=== PATIENT | male | born 1945 ===

== ENCOUNTER 2018-08-18 07:41 | Day surgery (SDC) | payer MEDICARE, OTHER ==
[2018-03-01 11:09] VITALS: BMI 36.6
[2018-08-18 08:16] VITALS: O2SAT 100
[2018-08-18 08:43] LABS: CALCIUM 8.9 mg/dl (8.6-10.4)
--- NOTE | 2018-08-18 09:13 | CP.SDSHP ---
Same Day Surgery H & P - History Proposed Procedure: colonosocpy Pre-Op Diagnosis: screen - Previous Medical/Surgical History Cardiac: Hypertension Endocrine/Metabolic: Diabetes Comments: CRF - Allergies Allergies: Allergies No Known Allergies Allergy (Verified 02/15/18 10:59) - Physical Exam Vital Signs: Vital Signs 08/18/18 08:08 Temperature 98.1 F Pulse Rate 97 H Respiratory 18 Rate Blood Pressure 198/85 H O2 Sat by Pulse 100 Oximetry Mental Status: Alert & Oriented x3 Neuro: WNL Heart: WNL Lungs: WNL GI: WNL - {Optional Preform as Required} Abdomen: WNL - Impression Impression: screening Pt. Evaluated Today:Candidate for Anesthesia & Procedure: Yes - Date & Time Date: 08/18/18 Time: 09:13 Short Stay Discharge - Short Stay Discharge Admitting Diagnosis/Reason for Visit: SCREENING Disposition: HOME/ ROUTINE
[2018-08-18] MEDS ORDERED: Propofol 10 mg/ml Inj (20 ML) ONE ×2 (09:18→10:04)
[2018-08-18] MEDS ORDERED: Lactated Ringer's 1,000 ML IV ONE (09:20)
[2018-08-18] MEDS ORDERED: Simethicone 40 mg/0.6 ml Liquid (30 ml) ONE (09:38)
[2018-08-18 12:20] VITALS: BP 188/81; PULSE 88; RESP 22; TEMP 97.9
== END 2018-08-18 11:45 | disposition home or self-care (01) ==
LOC: C.ENDO 07:41
PROVIDERS: ATTEND Internal Medicine Gastroenterology
DX: Z12.11 Encounter for screening for malignant neoplasm of colon (principal); D12.2 Benign neoplasm of ascending colon; D12.0 Benign neoplasm of cecum
CPT/HCPCS: 36415; 45385; 80048; 82948; 88305; J2704; J7120